=== PATIENT | female | born 1950 | race Two or more races ===

== ENCOUNTER 2025-02-03 06:00 | Day surgery (SDC) | payer OTHER ==
[2025-01-26 13:30] VITALS: BP 140/75
[~2025-02-03] VITALS: Ht 157.5 cm; Wt 68.0 kg
[~2025-02-03 06:00] MED LIST: CEFTRIAXONE SODIUM 2,000 MG VIAL ONE; METRONIDAZOLE/SODIUM CHLORIDE 500 MG/100 ML PIGGYBACK IV ONE; PREVACID30 MG PO
[2025-02-03] MEDS ORDERED: BUPIVACAINE HCL/MPF 0.5% 30ML VIAL ONE (07:38)
[2025-02-03] MEDS ORDERED: LIDOCAINE HCL 1%/EPINEPHRINE 20ML VIAL IJ ONE (07:38)
[2025-02-03] MEDS ORDERED: POVIDONE-IODINE 118 ML BOTT TOP ONE (07:38)
[2025-02-03] MEDS ORDERED: DIBUCAINE 30 GM TUBE ONE (07:53)
[2025-02-03] MEDS ORDERED: HEMOSTATIC MATRIX 1 KIT KIT TOP ONE (07:53)
[2025-02-03] MEDS ORDERED: TAMSULOSIN HCL 0.4 MG CAP PO ONE (09:45)
[2025-02-03] MEDS ORDERED: OXYCODONE HCL5 MG PO (10:09)
[2025-02-03] MEDS ORDERED: MORPHINE SULFATE 4 MG/ML VIAL IV ONE ×2 (10:55→11:25)
== END 2025-02-03 12:35 | disposition home or self-care (01) ==
LOC: CIR.AMB 06:00
PROVIDERS: ATTEND Surgery
DX: K64.2 Third degree hemorrhoids (principal); K64.4 Residual hemorrhoidal skin tags; K62.5 Hemorrhage of anus and rectum